=== PATIENT | female | born 1955 | race Caucasian/White ===

== ENCOUNTER → 2016-12-05 | Outpatient (CLI) | payer BC, OTHER ==
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
== END | disposition home or self-care (01) ==
LOC: KCIC MAMMO 09:09
PROVIDERS: ATTEND Family Medicine
DX: Z12.31 Encounter for screening mammogram for malignant neoplasm of breast (principal)
CPT/HCPCS: G0202; 77067

== ENCOUNTER → 2017-10-27 | Outpatient (CLI) | payer BC, OTHER | END | disposition home or self-care (01) | LOC: KCIC US 13:33 | DX: N95.0 Postmenopausal bleeding (principal) | CPT/HCPCS: 76830; 76856 ==

== ENCOUNTER → 2017-12-15 | Outpatient (CLI) | payer BC, OTHER | END | disposition home or self-care (01) | LOC: KCIC MAMMO 08:55 | DX: Z12.31 Encounter for screening mammogram for malignant neoplasm of breast (principal) | CPT/HCPCS: 77063; 77067 ==

== ENCOUNTER → 2018-12-16 | Outpatient (CLI) | payer BC, OTHER ==
--- NOTE | 2018-12-16 17:22 | KCIC ---
Bilateral digital screening mammograms with 3-D tomosynthesis: Reason for examination: Routine screening. Comparison is made to previous studies dated 12/15/2017, 12/05/2016 and 12/03/2015. Bilateral mammograms in CC and oblique projections were obtained with 2-D imaging and 3-D tomosynthesis imaging on a [employer] Inspiration unit and reviewed on the workstation. Interpretation was made with the benefit of CAD. The skin and nipples show no abnormalities. No abnormal axillary lymph nodes are seen. The breast parenchyma is predominantly fatty. (Breast density: Category A.) There continues to be a small circumscribed lesion present anteriorly near the 5:00 position of the right breast which appears to be slightly smaller. There are no new dominant masses, suspicious calcifications or architectural distortion. Impression: No evidence of malignancy. Recommend routine screening. BI-RAD Category 2: Benign. "Our facility is accredited by the [employer] Mammography [employer]." This patient's information has been entered into a reminder system for the patient to be notified with the results of her examination and a target date for the next mammogram. Electronically signed by: Kayla Ruiz MD (12/16/2018 5:19 PM) [id number]
== END | disposition home or self-care (01) ==
LOC: KCIC MAMMO 12:28
PROVIDERS: ATTEND Family Medicine
DX: Z12.31 Encounter for screening mammogram for malignant neoplasm of breast (principal)
CPT/HCPCS: 77063; 77067

== ENCOUNTER → 2019-12-19 | Outpatient (CLI) | payer BC, OTHER ==
--- NOTE | 2019-12-19 15:21 | KCIC ---
Bilateral digital screening mammograms with 3-D tomosynthesis: Reason for examination: Routine screening. Comparison is made to previous studies dated back to 12/05/2016. Bilateral mammograms in CC and oblique projections were obtained with 2-D imaging and 3-D tomosynthesis imaging on a [employer] Inspiration unit and reviewed on the workstation. Interpretation was made with the benefit of CAD. The skin and nipples show no abnormalities. No abnormal axillary lymph nodes are seen. The breast parenchyma shows scattered fatty and fibroglandular density. (Breast density: Category B.) There continues to be a nodule consistent with some cystic fat necrosis in the upper inner quadrant of the right breast anteriorly which is less prominent. There are no new dominant masses, suspicious calcifications or architectural distortion. Impression: No evidence of malignancy. Recommend routine screening. BI-RAD Category 2: Benign. "Our facility is accredited by the [employer] Mammography Program." This patient's information has been entered into a reminder system for the patient to be notified with the results of her examination and a target date for the next mammogram. Electronically signed by: aKyla Ruiz MD (12/19/2019 3:18 PM) [email or web address]
== END | disposition home or self-care (01) ==
LOC: KCIC MAMMO 10:15
PROVIDERS: ATTEND Family Medicine
DX: Z12.31 Encounter for screening mammogram for malignant neoplasm of breast (principal); N64.1 Fat necrosis of breast; N64.89 Other specified disorders of breast
CPT/HCPCS: 77063; 77067

== ENCOUNTER → 2019-12-28 | Outpatient (CLI) | payer BC, OTHER ==
--- NOTE | 2019-12-28 16:07 | KCIC ---
Bone Densitometry History: Osteoporosis screening, menopausal Findings: Bone Densitometry was performed with dual photon absorption of the lumbar spine and proximal femurs. Lumbar Spine: Bone density is 0.885 g/cm2 for L1-L4. T-score is -1.5. Z-score is 0.1. Left femoral neck: Bone density is 0.861 g/cm2. T-score is -0.7. Z-score is 0.4. IMPRESSION: Lumbar spine bone mineral density loss of 15 percent compared to peak young reference is noted. As compared to 11/07/2013, decrease in bone mineral density by 8.3 percent is evident. Interval followed bone mineral density exam in 24 months is recommended if additional or more aggressive therapy is instituted. World Health Organization definition of osteoporosis and osteopenia for women: normal equals T score at or above -1.0 standard deviations; osteopenia equals T score between -1.0 and -2.5 standard deviations; osteoporosis equals T score at or below -2.5 standard deviations. Electronically signed by: Remy Blue MD (12/28/2019 4:04 PM) [id number]
== END | disposition home or self-care (01) ==
LOC: KCIC DEXA 11:22
PROVIDERS: ATTEND Family Medicine
DX: Z13.820 Encounter for screening for osteoporosis (principal); M85.88 Other specified disorders of bone density and structure, other site
CPT/HCPCS: 77080

== ENCOUNTER → 2020-12-19 | Outpatient (CLI) | payer BC, OTHER ==
--- NOTE | 2020-12-19 12:25 | KCIC ---
Bilateral digital screening mammograms with 3-D tomosynthesis: Reason for examination: Routine screening. Comparison is made to previous studies dated back to 12/05/2016. Bilateral mammograms in CC and oblique projections were obtained with 2-D imaging and 3-D tomosynthes is imaging on a [employer] Inspiration unit and reviewed on the workstation. Interpretation was made with the benefit of CAD. The skin and nipples show no abnormalities. No abnormal axillary lymph nodes are seen. The breast par enchyma is predominantly fatty. (Breast density: Category A.) There continues to be a small circumscr ibed lesion in the 3:00 A position of the right breast which is stable and 2:00 B position of the lef t breast which is stable. There are no new dominant masses, suspicious calcifications or architectura l distortion. Impression: No evidence of malignancy. Recommend routine screening. BI-RAD Category 2: Benign. "Our facility is accredited by the [employer] Mammography Program." This patient's information has been entered into a reminder system for the patient to be notified wit h the results of her examination and a target date for the next mammogram. Electronically signed by: Kayla Ruiz MD (12/19/2020 12:23 PM) [email or web address]
== END ==
LOC: KCIC MAMMO 09:23
PROVIDERS: ATTEND Family Medicine
DX: Z12.31 Encounter for screening mammogram for malignant neoplasm of breast (principal)
CPT/HCPCS: 77063; 77067

== ENCOUNTER → 2021-06-05 | Outpatient (CLI) | payer BC, OTHER ==
--- NOTE | 2021-06-05 16:22 | KCIC ---
EXAM: ULTRASOUND PELVIS INDICATION: Reason: POSTMENOPAUSAL BLEEDING COMPARISON: None available. TECHNIQUE: Transabdominal sonography was performed. FINDINGS: The uterus measures 9.2 x 4.5 x 4.2 cm. The endometrium measures 0.4 cm. There is no focal myometria l abnormality The right ovary measures 1.7 x 2 x 2 cm. The left ovary measures 1.5 x 1 x 1.2 cm. No dominant adne xal mass. Flow seen to both ovaries. There is no free fluid. IMPRESSION: Uterus and adnexa are unremarkable. No dominant adnexal or myometrial mass. No evidence for ovarian torsion. Electronically signed by: Chintan Peña MD (06/05/2021 4:20 PM) [id number]
== END ==
LOC: KCIC US 12:20
PROVIDERS: ATTEND Family Medicine
DX: N95.0 Postmenopausal bleeding (principal)
CPT/HCPCS: 76856

== ENCOUNTER → 2021-12-20 | Outpatient (CLI) | payer BC, OTHER ==
--- NOTE | 2021-12-20 17:50 | KCIC ---
Bilateral digital screening 2-D and 3-D (digital breast tomosynthesis) mammogram: Reason for examination: Routine screening. Comparison: Mammograms from 12/05/2016, 12/19/2019 and 12/19/2020. Interpretation was made with the benefit of CAD. FINDINGS: Breast density: Category A. Breast tissue is almost entirely fatty. No new suspicious breast mass, malignant appearing calcifications, or architectural distortion is see n. There is a small oval circumscribed mass in the 3:00 position right breast and unchanged oval asym metry in the 2:00 B position left breast that are stable. IMPRESSION: No evidence of malignancy. Assessment: BI-RADS 2. Benign findings. Recommendation: Routine screening mammograms. The patient will receive a letter with the results in the mail. Patient information will be entered i nto the mammography reminder system with a target recall date for the next mammogram. A reminder guille er will be generated. Electronically signed by: Meghna Marc MD (12/20/2021 5:48 PM) [email or web address]
== END ==
LOC: KCIC MAMMO 08:42
PROVIDERS: ATTEND Family Medicine
DX: Z12.31 Encounter for screening mammogram for malignant neoplasm of breast (principal)
CPT/HCPCS: 77063; 77067

== ENCOUNTER → 2022-01-02 | Outpatient (CLI) | payer BC, OTHER ==
--- NOTE | 2022-01-02 08:55 | KCIC ---
INDICATION: Screening for osteopenia/osteoporosis. Reason: MENOPAUSAL / Spl. Instructions: / Histor y: COMPARISON: December 2019 TECHNIQUE: Bone densitometry was performed through the lumbar spine and proximal femur. IMPRESSION: Lumbar Spine: BMD: 0.89 T-Score: -1.5 Range: Osteopenic. Similar to prior. Proximal Femur: BMD: 0.88 T-Score: -0.6 Range: Normal. Increased by 2 percent from prior. World Health Organization Criteria for Bone Density: T-Score: > -1.0: Normal Range < -1.0 to -2.5: Osteopenic Range < -2.5: Osteoporotic Range Electronically signed by: Fidel Elias MD (01/02/2022 8:53 AM) [id number]
== END ==
LOC: KCIC DEXA 07:51
PROVIDERS: ATTEND Family Medicine
DX: M85.88 Other specified disorders of bone density and structure, other site (principal); N95.1 Menopausal and female climacteric states
CPT/HCPCS: 77080